=== PATIENT | male | born 1990 | race Caucasian/White ===

== ENCOUNTER 2017-09-22 09:59 | Emergency (ER) | payer OTHER ==
[~2017-09-22] VITALS: Ht 167.6 cm; Wt 83.9 kg
--- NOTE | 2017-09-22 10:40 | NUR ---
Patient discharged to home in stable conditon. Written and verbal after care instructions given. Patient verbalizes understanding of instructions.
[2017-09-22] MEDS ORDERED: LIDOCAINE HCL 2% 20 ML VIAL TP ONE (10:45)
[2017-09-22 10:46] VITALS: BP 128/77
== END 2017-09-22 10:52 | disposition home or self-care (01) ==
LOC: ER 09:59
DX: L02.212 Cutaneous abscess of back [any part, except buttock and flank] (principal)
CPT/HCPCS: 10060; 99283; A4663

== ENCOUNTER 2017-09-24 08:47 | Emergency (ER) | payer OTHER ==
[~2017-09-24] VITALS: Ht 172.7 cm; Wt 83.9 kg
--- NOTE | 2017-09-24 08:55 | NUR ---
Packing removed by , no active drainage noted, sterile 4x4 applied to site.
--- NOTE | 2017-09-24 09:00 | NUR ---
Patient discharged to home in stable conditon. Written and verbal after care instructions given. Patient verbalizes understanding of instructions.
== END 2017-09-24 09:12 | disposition home or self-care (01) ==
LOC: ER 08:50
DX: Z48.01 Encounter for change or removal of surgical wound dressing (principal)
CPT/HCPCS: 99282; A4663